=== PATIENT | female | born 1980 | race Caucasian/White ===

== ENCOUNTER 2018-05-09 13:15 | Outpatient (RCR) | payer OTHER | END 2018-06-22 09:59 | disposition home or self-care (01) | LOC: MKS.ESL.PT 13:15 | DX: C50.412 Malignant neoplasm of upper-outer quadrant of left female breast (principal); I97.2 Postmastectomy lymphedema syndrome ==

== ENCOUNTER → 2019-08-12 | Outpatient (CLI) | payer OTHER | LOC: COL.LAB 09:33 | DX: Z01.812 Encounter for preprocedural laboratory examination (principal); Z11.59 Encounter for screening for other viral diseases ==

== ENCOUNTER → 2020-01-03 | Outpatient (CLI) | payer OTHER | LOC: ZCOL.LAB 10:02 | DX: C50.912 Malignant neoplasm of unspecified site of left female breast (principal); Z20.828 Contact with and (suspected) exposure to other viral communicable diseases ==